=== PATIENT | male | born 1970 | race Caucasian/White ===

== ENCOUNTER → 2017-09-15 | Outpatient (CLI) | payer BC ==
[~2017-09-15] MED LIST: FLNIN NAE; FLX10 PO; GABA-113 PO; MORP15TA19 PO; OXYC-57 PO; PRT/20 PO; ZNTT/150 PO
--- NOTE | 2017-09-15 15:09 | DIAGNOSTIC IMAGING REPORT ---
FUSION CT SINUSES W/O CLINICAL HISTORY: 47 years-old Male presenting with J32.9 Chronic sinusitis, 47-YEAR-OLD MALE WITH HISTORY OF RECURRENT. TECHNIQUE: Multidetector CT of the sinuses was performed without the use of intravenous contrast. IV contrast: None. A dose lowering technique was used consistent with the principles of ALARA (as low as reasonably achievable). COMPARISON: None. CT DOSE (mGy.cm): The estimated cumulative dose is 589.14 mGy.cm. FINDINGS: Batter Scaler topogram: Unremarkable. Aerated secretions and layering fluid with mild mucosal thickening in the left maxillary sinus. Relative slight sclerosis of the left maxillary sinus valdez in comparison to the right. Minimal aerated secretions in the right maxillary sinus. Postsurgical changes of maxillary antrostomies and ethmoidectomies. Remainder of the paranasal sinuses and mastoid air cells clear. Rightward bony nasal septal deviation. Ostiomeatal unit narrowing on the left secondary to a small Luis A cell as well as mucosal thickening. Right ostiomeatal unit patent. Nasofrontal ethmoid recesses patent. No bony dehiscence of the optic canals or carotid siphons. Orbits intact. Superficial soft tissues of the face within normal limits. Limited intracranial evaluation within normal limits. Upper cervical spine normal. IMPRESSION: 1. Aerated secretions in the maxillary sinuses, left greater than right. This is consistent with acute sinusitis. Further evidence of chronic sinusitis in the left maxillary sinus. 2. Postsurgical changes of maxillary antrostomies and ethmoidectomies. Electronically signed by: David Barraza M.D. 09/15/2017 3:07 PM Dictated Date/Time: 09/15/2017 3:04 PM
== END | disposition home or self-care (01) ==
LOC: C.CTS 14:47
DX: J32.0 Chronic maxillary sinusitis (principal); Z98.890 Other specified postprocedural states

== ENCOUNTER → 2017-09-23 | Outpatient (CLI) | payer BC ==
[~2017-09-23] MED LIST changes: +RANI150T85 PO; -ZNTT/150 PO
--- NOTE | 2017-09-23 13:32 | DIAGNOSTIC IMAGING REPORT ---
CHEST 2 VIEWS ROUTINE HISTORY: 47 years-old Male Z01.818 Visit for pre-operative [id number] preoperative exam. No acute chest complaints COMPARISON: Chest radiographs 07/08/2011 TECHNIQUE: PA and lateral views of the chest FINDINGS: Cardiomediastinal and hilar silhouettes are within normal limits. There is no pneumothorax, pleural effusion, focal airspace consolidation or overt pulmonary edema. 6 mm nodular opacity of the lateral right midlung appears unchanged. Bones of the chest appear grossly intact. Surgical clips are noted within the upper abdomen. IMPRESSION: No acute process. The above report was generated using voice recognition software. It may contain grammatical, syntax or spelling errors. Electronically signed by: James Kulkarni M.D. 09/23/2017 1:31 PM Dictated Date/Time: 09/23/2017 1:30 PM
[2017-09-23 14:41] LABS: BASO % 0.3 %; BASO ABS # 0.03 K/uL (0-0.2); EOS % 1.2 %; EOS ABS # 0.12 K/uL (0-0.5); HEMATOCRIT 49.8 % (42-52); HEMOGLOBIN 17.9 g/dL (14.0-18.0); IG# 0.02 K/uL (0.00-0.02); LYMPH % 28.6 %; LYMPH ABS # 2.89 K/uL (1.2-3.4); MEAN CELL VOLUME 82.3 fL (80-100); MEAN CORPUSCULAR HEMOGLOBIN 29.6 pg (25-34); MEAN CORPUSCULAR HGB CONC 35.9 g/dl (32-36); MEAN PLATELET VOLUME 10.3 fL (7.4-10.4); MONO % 9.4 %; MONO ABS # 0.95 K/uL (0.11-0.59); NEUT % 60.3 %; NEUT ABS # 6.08 K/uL (1.4-6.5); PLATELET COUNT 232 K/uL (130-400); RED CELL DISTRIBUTION WIDTH CV 13.1 % (11.5-14.5); RED CELL DISTRIBUTION WIDTH SD 39.2 fL (36.4-46.3); WHITE BLOOD COUNT 10.09 K/uL (4.8-10.8)
[2017-09-23 14:51] LABS: PTT PATIENT 26.1 SECONDS (21.0-31.0)
[2017-09-23 14:59] LABS: POTASSIUM 4.3 mmol/L (3.5-5.1)
== END | disposition home or self-care (01) ==
LOC: C.LAB 13:00
DX: Z01.818 Encounter for other preprocedural examination (principal)

== ENCOUNTER → 2017-10-30 | Day surgery (SDC) | payer BC ==
[2017-10-12 10:55] VITALS: Ht 185.4 cm; Wt 140.9 kg
[~2017-10-30] VITALS: Ht 185.4 cm; Wt 140.9 kg
[~2017-10-30] MED LIST changes: +ATROPINE SULFATE 0.1 MG/ML 5ML SYR IV PRN; +CEFAZOLIN 3000MG IV PUSH 22.5 ML IV SCH; +CETI10TA84 PO; +DEXAMETHASONE SOD INJ 4 MG/ML VIAL ONE; +EPP3/2 IM; +EpHEDrine SULFATE INJ 50 MG/ML AMP IV PRN; +EpINEphrine INJ 1MG/ML AMP 1 MG/ML AMP ONE; +FENTANYL CITRATE INJ 50 MCG/1 ML 2 ML VIAL IV PRN; +FENTANYL CITRATE INJ 50 MCG/1 ML 2 ML VIAL ONE; -FLNIN NAE; -FLX10 PO; -GABA-113 PO; +GLYCOPYRROLATE INJ 0.2 MG/ML VIAL ONE; +HYDROCODONE/ACETAMIN 5/325MG TAB PO PRN; +LIDOCAINE 4% MPF SOAK 5 ML = 1 DOSE TOP ONE; +LIDOCAINE HCL 2% 2 ML VIAL (20MG/ML) ONE; +LIDOCAINE/EPINEPHRINE 1% 20 ML VIAL ONE; +MELO7.5T5 PO; +MIDAZOLAM HCL 1 MG/ML 2ML VIAL ONE; -MORP15TA19 PO; +MULT-506 PO; +NEOSTIGMINE METHYLSULFATE 5 MG/5 ML SYR ONE; +ONDANSETRON INJ 2 MG/ML 2 ML VIAL IV PRN; +ONDANSETRON INJ 2 MG/ML 2 ML VIAL ONE; -OXYC-57 PO; +OXYMETAZOLINE HCL 0.05% NA SPR 15 ML BTL PRN; +OXYMETAZOLINE HCL 0.05% NA SPR 15 ML BTL SCH; +PANT1TAB3 PO; +PROPOFOL IV EMULSION 10 MG/ML 20 ML VIAL IV ONE; -PRT/20 PO; +RANI150T3 PO; -RANI150T85 PO; +VALS40TA2 PO
--- NOTE | 2017-10-30 12:38 | History & Physical Bridge - SC ---
H&P Re-Evaluation Bridge Note: I have examined the patient, reviewed the History & Physical and in the interval since the performance of the History & Physical I have noted the following changes of clinical significance: No changes noted
--- NOTE | 2017-10-30 13:46 | [facility] Operative Report ---
Operative Report Operative Date Oct 30, 2017. Pre-Operative Diagnosis Chronic Sinusitis, Nasal Septal Deviation, Hypertrophy of Both Inferior Nasal Turbinates Post-Operative Diagnosis Same Procedure(s) Performed Revision Image Guided Bilateral Endoscopic Sinus Surgery, Septoplasty, And Bilateral Inferior Turbinate Reduction Surgeon Dr. Crane Strap Buckler Surgeon(s) None Estimated Blood Loss 25ML Findings 1. MILD TO MODERATE R DNS 2. ADHESION BETWEEN R SEPTUM AND LATERAL NASAL WALL 3. RESIDUAL UNCINATE PROCESSES BILATERALLY 4. PUS IN L MAX SINUS 5. POLYPOID MUCOSAL THICKENING B MAX/ETHMOID/SPHENOID SINUSES 6. SMALL L>R CONCH BULLOSAE Specimens None Anesthesia Type General I attest to the content of the Intraoperative Record and any orders documented therein. Any exceptions are noted below.
--- NOTE | 2017-10-30 13:48 | Discharge Instructions ---
Discharge Instructions Date of Service Oct 30, 2017. Admission Reason for Admission: Chronic Sinusitis, Septal Deviation, Hypertrophy Discharge Discharge Diagnosis / Problem: SAME Discharge Goals Goal(s): Therapeutic intervention Activity Recommendations Activity Limitations: as noted below 1. LIGHT ACTIVITY AND NO NOSE BLOWING FOR 2 WEEKS 2. NO DRIVING WHILE ON NORCO . Current Hospital Diet Patient's current hospital diet: Discharge Diet Recommended Diet: Regular Diet Procedures Procedures Performed: Revision Image Guided Bilateral Endoscopic Sinus Surgery, Septoplasty, And Bilateral Inferior Turbinate Reduction Pending Studies Studies pending at discharge: no Medical Emergencies . Who to Call and When: Medical Emergencies: If at any time you feel your situation is an emergency, please call 911 immediately. . Non-Emergent Contact Non-Emergency issues call your: Surgeon . . "Provider Documentation" section prepared by Mario Crane. .
[2017-10-30 14:33] VITALS: TEMP 36.8
--- NOTE | 2017-10-30 14:42 | Anesthesia Progress Nt - [facility] ---
Anesthesia Post Op Note Date & Time Oct 30, 2017 at 14:41 Vital Signs Pain Intensity: 0 Vital Signs Past 12 Hours Date Time Temp Pulse Resp B/P (MAP) Pulse Ox O2 Delivery O2 Flow Rate FiO2 10/30/17 14:29 66 13 10/30/17 14:29 67 13 95 10/30/17 14:28 66 12 108/71 95 Room Air 10/30/17 14:26 108/71 10/30/17 14:24 60 8 10/30/17 14:24 61 8 93 10/30/17 14:21 104/76 10/30/17 14:19 59 9 10/30/17 14:19 59 9 96 10/30/17 14:16 109/64 10/30/17 14:14 67 13 96 10/30/17 14:14 67 13 10/30/17 14:11 112/67 10/30/17 14:09 64 9 97 10/30/17 14:09 64 9 10/30/17 14:06 124/74 10/30/17 14:04 73 16 95 10/30/17 14:04 74 16 10/30/17 14:01 124/74 10/30/17 13:59 78 16 10/30/17 13:59 78 16 97 10/30/17 13:56 132/78 10/30/17 13:54 87 12 96 10/30/17 13:54 87 12 10/30/17 13:51 133/76 10/30/17 13:50 115/92 10/30/17 13:49 36.7 92 12 133/76 98 Humidified Oxygen 6 10/30/17 13:49 97 10/30/17 13:49 97 98 10/30/17 09:53 36.6 79 18 158/112 (127) 96 Room Air Notes Mental Status: alert / awake / arousable, participated in evaluation Pt Amnestic to Procedure: Yes Nausea / Vomiting: adequately controlled Pain: adequately controlled Airway Patency, RR, SpO2: stable & adequate BP & HR: stable & adequate Hydration State: stable & adequate Anesthetic Complications: no major complications apparent
--- NOTE | 2017-10-30 14:44 | OPERATIVE REPORT ---
DATE OF OPERATION: 10/30/2017 PREOPERATIVE DIAGNOSES: 1. Chronic rhinosinusitis. 2. Right septal deviation. 3. Left greater than right inferior turbinate hypertrophy. POSTOPERATIVE DIAGNOSES: 1. Chronic rhinosinusitis. 2. Right septal deviation. 3. Left greater than right inferior turbinate hypertrophy. 4. Right nasal synechia. PROCEDURES: Revision [employer] fusion image-guided bilateral endoscopic sinus surgery consisting of: 1. Right nasal lysis of adhesions. 2. Revision bilateral maxillary antrostomies. 3. Revision complete ethmoidectomies. 4. Revision sphenoidotomies. 5. Bilateral endoscopic ana bullosa resection. 6. Revision septoplasty. 7. Bilateral inferior turbinate outfracture and turbinoplasties. SURGEON: Dr. Crane. ANESTHESIA: General endotracheal. ESTIMATED BLOOD LOSS: 25 mL FINDINGS: 1. Synechia between the septum and lateral nasal wall on the right hand side. 2. Moderate right septal deviation. 3. Left greater than right inferior turbinate hypertrophy. 4. Purulence within the left maxillary sinus. 5. Polypoid mucosal thickening involving bilateral maxillary, ethmoid and sphenoid sinuses. 6. Residual uncinate processes bilaterally. 7. Left greater than right small ana bullosa. SPECIMENS: None. COMPLICATIONS: None. INDICATIONS FOR THE PROCEDURE: The patient is a 47-year-old male who has undergone bilateral endoscopic sinus surgery in the past by pratibha Alcantar in the [place] area in the . He states that this originally helped his symptomatology but then he developed recurrent symptomatology which has been refractory to maximal medical therapy including systemic antibiotics and steroids, although steroids give the patient significant side effects. The patient has a history of allergic rhinitis and is currently undergoing sublingual immunotherapy. He presents for the above-mentioned procedures on an outpatient elective basis. DETAILS OF PROCEDURE: After informed consent had been obtained from the patient, the patient was wheeled to the operating room and placed on the operating room table in the supine position. Monitors were placed, and after induction of general endotracheal anesthesia, the patient was prepped in the usual fashion for image-guided endoscopic sinus surgery. The [employer] fusion headset was placed over the forehead and was registered, calibrated, and verified and used for the vast majority of the sinus case. Lidocaine and epinephrine pledgets were placed in bilateral nasal cavities and pressure applied. The right-sided pledget was first removed. There was a synechia between the septum and lateral nasal wall. This was injected with 1% lidocaine with 1:100,000 epinephrine. A Caballo elevator was then used to lyse the synechia. Despite this, there was still moderate septal deviation such that the right-sided sinus surgery could not be performed before the septoplasty. Lidocaine and epinephrine pledget was then placed in the right nasal cavity and the left side was addressed. The left side pledget was removed. The residual uncinate process, middle turbinate and lateral nasal wall were injected with 1% lidocaine with 1:100,000 epinephrine. A Caballo elevator was used to medialize the left middle turbinate. A sickle knife was used to incise the middle turbinate longitudinally and the lateral half of the middle turbinate was removed using straight Surendra-Cut forceps and powered instrumentation. A Caballo elevator, straight Surendra-Cut forceps and powered instrumentation were then used to perform left uncinatectomy. The patient's previous maxillary antrostomy was enlarged anteriorly, inferiorly and posteriorly using powered instrumentation. A revision complete ethmoidectomy was then performed, removing polypoid tissue and scar tissue that was preventing a complete ethmoid cavity from being well aerated. There was purulence within the left maxillary sinus which was completely evacuated using a curved maxillary sinus suction. The left sphenoid sinus ostium was enlarged medially and inferiorly using powered instrumentation. Of note, there was polypoid mucosal thickening involving the maxillary, ethmoid and sphenoid sinuses. The nasal septum was then addressed. The nasal septum was injected with 1% lidocaine with 1:100,000 epinephrine. Lidocaine and epinephrine pledgets were then placed in bilateral nasal cavities and pressure applied. The pledgets were then removed. A #15 scalpel was used to make a left hemitransfixion incision through which the left-sided mucoperichondrial and mucoperiosteal flap was elevated. A #15 scalpel was then used to incise the quadrangular cartilage, care to preserve a 1.5 cm dorsal and caudal strut, and the right-sided mucoperichondrial and mucoperiosteal flap was elevated. There was previous scar tissue from a likely previous septoplasty that had to be divided carefully using a combination of the Putnam elevator as well as a #15 scalpel. The deviated portion of the quadrangular cartilage was removed using a Leobardo swivel knife. A V-shaped osteotome, mallet and Millicent forceps were then used to remove a bony septal spur which was impinging on the airway posteriorly on the right hand side. This resulted in a midline septum. The septal cavity was suctioned. The left hemitransfixion incision was closed with several simple interrupted 4-0 chromic sutures. A 4-0 plain gut suture on a Adrian needle was then used to perform a quilting stitch of the mucoperichondrial and mucoperiosteal flaps bilaterally to help prevent septal hematoma. A Moreno elevator was then used to infracture and subsequently outfracture the inferior turbinates bilaterally. The inferior turbinates were injected with 1% lidocaine with 1:100,000 epinephrine. A 2.0 mm turbinate blade using powered instrumentation was then used to perform bilateral inferior turbinoplasties in the submucosal fashion. The right-sided sinus surgery was then performed. This was done in the similar fashion as described on the left hand side, although there was no purulence within the maxillary sinus. The sinonasal cavities were then suctioned. MeroGel was then placed into bilateral ethmoid sinuses/middle meati. Merogel was also placed at the right nasal lysis of adhesion site to hopefully help prevent adhesion re-formation. An orogastric tube was placed and the stomach was suctioned free of air and stomach contents. This marked the end of the case. The patient tolerated the procedure well and there were no apparent complications. The patient was extubated and transferred to recovery room in stable condition. I attest to the content of the Intraoperative Record and any orders documented therein. Any exception s are noted below.
[2017-10-30 15:01] VITALS: BP 127/86; PULSE 70; O2SAT 94
== END | disposition home or self-care (01) ==
LOC: X.SURG 09:38
DX: J34.2 Deviated nasal septum (principal); J30.9 Allergic rhinitis, unspecified; J34.3 Hypertrophy of nasal turbinates; E66.9 Obesity, unspecified; I10 Essential (primary) hypertension; F17.290 Nicotine dependence, other tobacco product, uncomplicated; Z82.49 Family history of ischemic heart disease and other diseases of the circulatory system; Z82.3 Family history of stroke; Z83.3 Family history of diabetes mellitus; Z80.8 Family history of malignant neoplasm of other organs or systems; Z79.899 Other long term (current) drug therapy

== ENCOUNTER → 2018-03-02 | Outpatient (CLI) | payer BC ==
[~2018-03-02] VITALS: Ht 185.4 cm; Wt 140.7 kg
[~2018-03-02] MED LIST changes: -ATROPINE SULFATE 0.1 MG/ML 5ML SYR IV PRN; -CEFAZOLIN 3000MG IV PUSH 22.5 ML IV SCH; -DEXAMETHASONE SOD INJ 4 MG/ML VIAL ONE; -EpHEDrine SULFATE INJ 50 MG/ML AMP IV PRN; -EpINEphrine INJ 1MG/ML AMP 1 MG/ML AMP ONE; -FENTANYL CITRATE INJ 50 MCG/1 ML 2 ML VIAL IV PRN; -FENTANYL CITRATE INJ 50 MCG/1 ML 2 ML VIAL ONE; -GLYCOPYRROLATE INJ 0.2 MG/ML VIAL ONE; -HYDROCODONE/ACETAMIN 5/325MG TAB PO PRN; -LIDOCAINE 4% MPF SOAK 5 ML = 1 DOSE TOP ONE; -LIDOCAINE HCL 2% 2 ML VIAL (20MG/ML) ONE; -LIDOCAINE/EPINEPHRINE 1% 20 ML VIAL ONE; -MELO7.5T5 PO; -MIDAZOLAM HCL 1 MG/ML 2ML VIAL ONE; -NEOSTIGMINE METHYLSULFATE 5 MG/5 ML SYR ONE; -ONDANSETRON INJ 2 MG/ML 2 ML VIAL IV PRN; -ONDANSETRON INJ 2 MG/ML 2 ML VIAL ONE; -OXYMETAZOLINE HCL 0.05% NA SPR 15 ML BTL PRN; -OXYMETAZOLINE HCL 0.05% NA SPR 15 ML BTL SCH; -PROPOFOL IV EMULSION 10 MG/ML 20 ML VIAL IV ONE
[2018-03-02 14:11] VITALS: BP 140/89; PULSE 71; Ht 185.4 cm; Wt 140.7 kg
== END | disposition home or self-care (01) ==
LOC: C.NEUR 13:22
PROVIDERS: ATTEND Internal Medicine Pulmonary Disease
DX: G47.30 Sleep apnea, unspecified (principal); R53.83 Other fatigue; G47.19 Other hypersomnia; E66.9 Obesity, unspecified; Z88.8 Allergy status to other drugs, medicaments and biological substances; Z88.6 Allergy status to analgesic agent; Z91.048 Other nonmedicinal substance allergy status; Z91.013 Allergy to seafood

== ENCOUNTER 2019-10-13 14:19 | Observation (INO) ==
--- NOTE | 2019-10-12 08:46 | Anesthesiology Consultation ---
Date of Service October 12, 2019 Assessment & Plan (1) Encounter for pre-operative examination: Chart Review Chart Review: Acceptable Risk for Surgery (pending preop testing) and Patient NOT seen in Pre Admission Testing History Surgery Operation Date: 10/13/19 07:00 Proposed Procedures p Right Ankle Open Reduction Internal Fixation Maisonneuve Fracture, Posterior Malleolar Fracture, Syndesmosis Stabilization - David Damico MD Height/Weight Height: 6 ft 1 in Weight: 133.4 kg Allergies Allergy/AdvReac Type Severity Reaction Status Date / Time grass pollen Allergy Unknown Unknown Verified 10/12/19 08:46 house dust mite Allergy Unknown Unknown Verified 10/12/19 08:46 ragweed pollen Allergy Unknown Unknown Verified 10/12/19 08:46 shellfish derived Allergy Unknown ANAPHYLAXIS Verified 10/12/19 08:46 tree and shrub pollen Allergy Unknown Unknown Verified 10/12/19 08:46 weed pollen Allergy Unknown Unknown Verified 10/12/19 08:46 prednisone AdvReac Mild "NAUSEA Verified 10/12/19 08:46 AND VOMITING" morphine AdvReac Unknown "MAKES ME Verified 10/12/19 08:46 STRANGE" Medications Home Medications Medication Instructions Recorded Confirmed Last Taken epinephrine 0.3 mg/0.3 mL 0.3 mg IM ONCE PRN #1 ea 03/21/19 10/12/19 Unknown injection, auto-injector multivitamin 1 tab PO DAILY 03/21/19 10/12/19 Unknown pantoprazole 40 mg tablet,delayed 40 mg PO DAILY #90 tab 05/09/19 10/12/19 Unknown release valsartan 40 mg tablet 40 mg PO DAILY #90 tab 05/24/19 10/12/19 Unknown meloxicam [Mobic] 7.5 mg PO BID 10/12/19 10/12/19 Unknown Past Medical History Medical History Acid reflux Allergic rhinitis Carpal tunnel syndrome Chronic sinusitis Circadian rhythm sleep disorder, shift work type Fatigue Hx of gastritis Hypertension Obesity ABDI (obstructive sleep apnea) non-compliant - unable to tolerate CPAP Past Family History Family History Mother Diabetes Cardiac disorder Allergies Hypertension Stroke Father Bone cancer Allergies Myocardial infarction Cancer Other No family history of adverse response to anesthesia Denies family history of Ovarian cancer Prostate cancer Breast cancer Colorectal cancer Past Surgical History Surgical History History of appendectomy History of cholecystectomy Lap History of esophagogastroduodenoscopy (EGD) History of hand surgery right hand History of nasal septoplasty History of nasal surgery History of sinus surgery history of turbinectomy History of tonsillectomy S/P lumbar spinal fusion L1-L4 Social History Smoking Status: Current some day smoker tobacco type: cigars
--- NOTE | 2019-10-12 14:17 | History & Physical Report ---
Date of Service October 12, 2019 Assessment & Plan (1) Closed right ankle fracture: DIAGNOSIS: Right ankle maisonneuve fracture; posterior malleolar fracture; syndesmosis disruption. PROCEDURE: Open reduction and internal fixation of right ankle maisonneuve fracture, posterior malleolar fracture, and syndesmosis stabilization. PLAN: The patient is scheduled to undergo this procedure as an inpatient at the [facility] on October. Risks and complications of the procedure such as infection, bleeding, pain, scar, nerve and blood vessel damage, weakness, wound problems, stiffness, incomplete relief of symptoms, hardware failure, malunion, nonunion, arthritis, blood clots, embolism, heart attack, stroke, and were explained to the patient by Dr. Damico today. Informed consent form of the procedure was obtained. We obtained an EKG during the patient's preoperative visit today that showed normal sinus rhythm. The patient went to the [facility] upstairs after his appointment and received CBC, basic metabolic panel, PT, INR, and results are pending. There is no clinical indication for any preoperative medical clearance. The patient will be admitted as an inpatient for pain control. We will discharge him on Xarelto 10 mg tablets for 21 days postoperatively for DVT prophylaxis as well as oxycodone for postoperative pain control. The patient will be scheduled for his postoperative followup visit with myself on October 25 at 10:15. During today's visit, I did place the patient into a new posterior U splint that he is to keep in place until his surgery. He will use crutches as an ambulatory aid. After his 2-week followup, we may discuss the possibility of using an e-scooter for transportation purposes. The patient verbalized understanding of all information provided during today's visit, thanks for the care he has received, and states if he has questions or concerns prior to his surgery date this coming , he will contact the clinic. History of Present Illness Chief Complaint: CHIEF COMPLAINT: Right ankle pain. Primary Care Provider: Christine Lane DO HPI: This is a 49-year-old male, who presents to the clinic today for an evaluation of a right ankle fracture that he sustained after tripping on his stairs and missing the landing this morning. The patient states that he felt a crack and was unable to bear weight after the injury occurred. He was seen at the [facility] Emergency Department, placed into a U splint, and advised to follow up in our clinic. The patient was diagnosed with maisonneuve fracture of his right ankle involving the posterior malleolus and syndesmosis disruption. He elects to proceed with surgical intervention to correct this injury. PAST MEDICAL HISTORY: Hypertension, gastroesophageal reflux. PAST SURGICAL HISTORY: Lumbar fusion of L1 through L4, appendectomy, cholecystectomy, sinus surgery, tonsillectomy/adenoidectomy, and right 5th finger open reduction and internal fixation with extensor tendon repair. FAMILY HISTORY: Noncontributory. ALLERGIES: THE PATIENT HAS MEDICATION ALLERGY TO PREDNISONE. CURRENT MEDICATIONS USED: Meloxicam unknown dosage daily, multivitamin unknown dosage daily, pantoprazole unknown dosage daily, valsartan unknown dosage daily. SOCIAL HISTORY: The patient states that he smokes 3 cigars per week and consumes approximately 6 beers per week. Allergies Allergy/AdvReac Type Severity Reaction Status Date / Time grass pollen Allergy Unknown Unknown Verified 10/12/19 08:46 house dust mite Allergy Unknown Unknown Verified 10/12/19 08:46 ragweed pollen Allergy Unknown Unknown Verified 10/12/19 08:46 shellfish derived Allergy Unknown ANAPHYLAXIS Verified 10/12/19 08:46 tree and shrub pollen Allergy Unknown Unknown Verified 10/12/19 08:46 weed pollen Allergy Unknown Unknown Verified 10/12/19 08:46 prednisone AdvReac Mild "NAUSEA Verified 10/12/19 08:46 AND VOMITING" morphine AdvReac Unknown "MAKES ME Verified 10/12/19 08:46 STRANGE" Home Medications Home Medications Medication Instructions Recorded Confirmed Type epinephrine 0.3 mg/0.3 mL 0.3 mg IM ONCE PRN #1 ea 03/21/19 10/12/19 History injection, auto-injector multivitamin 1 tab PO DAILY 03/21/19 10/12/19 History pantoprazole 40 mg tablet,delayed 40 mg PO DAILY #90 tab 05/09/19 10/12/19 Rx release valsartan 40 mg tablet 40 mg PO DAILY #90 tab 05/24/19 10/12/19 Rx meloxicam [Mobic] 7.5 mg PO BID 10/12/19 10/12/19 History Past Med/Surg History Medical History Acid reflux Allergic rhinitis Carpal tunnel syndrome Chronic sinusitis Circadian rhythm sleep disorder, shift work type Fatigue Hx of gastritis Hypertension Obesity ABDI (obstructive sleep apnea) non-compliant - unable to tolerate CPAP Surgical History History of appendectomy History of cholecystectomy Lap History of esophagogastroduodenoscopy (EGD) History of hand surgery right hand History of nasal septoplasty History of nasal surgery History of sinus surgery history of turbinectomy History of tonsillectomy S/P lumbar spinal fusion L1-L4 Family History Mother Diabetes Cardiac disorder Allergies Hypertension Stroke Father Bone cancer Allergies Myocardial infarction Cancer Other No family history of adverse response to anesthesia Denies family history of Ovarian cancer Prostate cancer Breast cancer Colorectal cancer Social History Preferred Language: Armenian Communication Ability: Effective Log Tumbler Required: No Beliefs That Will Affect Care: None Current Living Situation: Spouse and Family Current Living Situation Comment: , granddaughter, and [id number] Other Information That Helps Us Care for You: No Feels Safe at Home: Yes Safety Concerns: Feels Safe At This Time Smoking Status: Current some day smoker Tobacco Type: cigars ; Cigarettes Per Day: 3 cigars a week ; Do You Dip or Chew Tobacco: No ; Second Hand Exposure: Yes (occasional) ; Tobacco Cessation Education Requested by Patient: No Hx Alcohol Use: Yes Alcohol type: beer Hx Substance Use: No Review of Systems All systems reviewed & are unremarkable except as noted in HPI & below Physical Exam Physical Exam: PHYSICAL EXAMINATION: Skin: The patient's skin is normal in appearance. No skin lesions or discharge. Eyes: Pupils are equal and reactive to light and accommodating. Extraocular movements are intact. Throat: Posterior oropharynx clear with absence of edema, erythema, or exudate. Cardiovascular: The patient has a regular rate and rhythm with no murmurs or gallops appreciated. Lungs: Auscultation of lung blas reveals clear breath sounds throughout. No wheezing, rales, or rhonchi. Abdomen: Morbidly obese, nondistended, nontender with normoactive bowel sounds. Extremities: Right ankle, the patient has exquisite tenderness to palpation over the distal fibula with noticeable edema and ecchymosis. Range of motion is very limited. Very light passive plantar and dorsiflexion causes severe pain referred to the medial and lateral malleoli. I did not attempt passive internal and external rotation, inversion and eversion. The patient is able to depict light sensation to touch over all the digits and pad of his foot and dorsum of his foot. His calf is soft, supple, nontender to palpation. His peripheral pulses are easily palpable. His capillary refill is less than 2 seconds. He is neurovascularly intact. Neurological: Cranial nerves II through XII are intact. No motor or sensory deficits. Psychological/General: The patient is alert and oriented x3 with proper grooming and hygiene.
[~2019-10-13 14:19] MED LIST changes: +CEFAZOLIN 3000MG 72.5 ML IV SCH; -CETI10TA84 PO; -EPP3/2 IM; +LR 15ML/HR IV SCH; -MULT-506 PO; -PANT1TAB3 PO; -RANI150T3 PO; -VALS40TA2 PO
--- NOTE | 2019-10-13 18:07 | History & Physical Bridge Note ---
Date of Service October 13, 2019 History & Physical Bridge Note I have examined the patient, reviewed the History & Physical and in the interval since the performance of the History & Physical I have noted the following changes of clinical significance: no changes noted
[2019-10-13] MEDS ORDERED: ONDANSETRON INJ 2 MG/ML 2 ML VIAL IV PRN ×2 (19:27→22:04)
[2019-10-13] MEDS ORDERED: fentaNYL citrate 100 MCG/2 ML VIAL IV PRN (19:27)
[2019-10-13] MEDS ORDERED: ATROPINE SULFATE 0.1 MG/ML 10ML SYR IV PRN (19:27)
[2019-10-13] MEDS ORDERED: ePHEDrine sulfate 50 MG/ML AMP IV PRN (19:27)
[2019-10-13] MEDS ORDERED: fentaNYL citrate 100 MCG/2 ML VIAL ONE ×2 (19:55→21:07)
[2019-10-13] MEDS ORDERED: MIDAZOLAM HCL 1 MG/ML 2ML VIAL ONE (19:55)
[2019-10-13] MEDS ORDERED: PROPOFOL IV EMULSION 10 MG/ML 20 ML VIAL IV ONE (19:56)
[2019-10-13] MEDS ORDERED: ROPIVACAINE 0.5% 5 MG/ML 30 ML VIAL ONE (19:58)
[2019-10-13] MEDS ORDERED: BUPIVACAINE/EPINEPHRINE 0.5% MPF 1:200,000 10 ML VIAL ONE (20:05)
[2019-10-13] MEDS ORDERED: ONDANSETRON INJ 2 MG/ML 2 ML VIAL ONE (20:49)
--- NOTE | 2019-10-13 21:45 | Post Operative Brief Note ---
Immediate Post Op Note v1 Date of Surgery October 13, 2019 Pre & Post Diagnosis Operation Date: 10/13/19 07:00 Pre-Op Diagnosis: Right Ankle Maissonneuve & Posterior Malleolar Fracture; Syndesmosis Disruption Post-Op Diagnosis: Right Ankle Maissonneuve & Posterior Malleolar Fracture; Syndesmosis Disruption I identified the patient and participated in the time-out.: Yes Procedure Operation Date: 10/13/19 07:00 Actual Procedures p Right Ankle Open Reduction Internal Fixation Maisonneuve Fracture, Posterior Malleolar Fracture, Syndesmosis Stabilization(Right) - David Damico MD Surgeon David Damico MD Yeast Pumper LYNNETTE Parekh PA-C Estimated Blood Loss 10 Findings Consistent with Post-Op Diagnosis Anesthesia Type General Regional Complications none Disposition Accompanied Patient To Recovery: No Disposition: Recovery Room
[2019-10-13] MEDS ORDERED: NALOXONE HCL 0.4 MG/1 ML VIAL/CARP IV PRN (21:59)
--- NOTE | 2019-10-13 21:59 | Operative Report ---
Post Operative Report Pre & Post Diagnosis Operation Date: 10/13/19 07:00 Pre-Op Diagnosis: Right Ankle Maissonneuve & Posterior Malleolar Fracture; Syndesmosis Disruption Post-Op Diagnosis: Right Ankle Maissonneuve & Posterior Malleolar Fracture; Syndesmosis Disruption I identified the patient and participated in the time-out.: Yes Procedure Operation Date: 10/13/19 07:00 Actual Procedures p Right Ankle Open Reduction Internal Fixation Maisonneuve Fracture, Posterior Malleolar Fracture, Syndesmosis Stabilization(Right) - David Damico MD Surgeon David Daimco MD Merchandise Executive LYNNETTE Parekh PA-C Estimated Blood Loss 10 Findings Consistent with Post-Op Diagnosis Specimens none Complications none Disposition Accompanied Patient To Recovery: Yes Disposition: PCU Description of Procedure I was present during the entire case assisting with wound closure, dressing and splint application. Please see Dr. Damico procedure note for specifics of the case. I attest to the content of the Intraoperative Record and any orders documented therein. Any exceptions are noted below.
--- NOTE | 2019-10-13 21:59 | Fluoroscopy Report ---
FL ankle RT min 3V RTN HISTORY: 49 years-old Male RT ANKLE ORIF ORIF of the right ankle COMPARISON: Right tibia and fibula radiographs 10/11/2019 TECHNIQUE: 10 spot fluoroscopic images of the right ankle were obtained utilizing 66.4 seconds fluoro scopy time. FINDINGS: Acute oblique fracture of the mid right fibular diaphysis. Posterior malleolar fracture is also noted along with degenerative changes of the ankle mortise. Corticated bone fragments adjacent to the medi al malleolus. Status post placement of a transversely oriented distal syndesmotic screw with anterior to posterior cannulated screw fixating the acute posterior malleolar fracture. Satisfactory alignmen t. Expected postprocedural soft tissue swelling. IMPRESSION: Fluoroscopic assistance as above. Please see operative report for further details. ACT 112: Negative or not required by law. The above report was generated using voice recognition software. It may contain grammatical, syntax o r spelling errors. Results electronically sent 10/13/2019 9:57 PM to: David Damico MD Electronically signed by: James Kulkarni M.D. 10/13/2019 9:57 PM
[2019-10-13] MEDS ORDERED: ACETAMINOPHEN 325 MG TAB PO PRN (22:04)
[2019-10-13] MEDS ORDERED: EPINEPHRINE ADULT AUTO-INJECT 0.3 MG SYR IM PRN (22:04)
[2019-10-13] MEDS ORDERED: ALUMINUM/MAGNESIUM SUSP 30 ML UDC PO PRN (22:04)
[2019-10-13] MEDS ORDERED: DiphenhydrAMINE HCL 50 MG/ML VIAL IV PRN (22:04)
[2019-10-13] MEDS ORDERED: METOCLOPRAMIDE HCL INJ 5 MG/ML 2 ML VIAL IV PRN (22:04)
--- NOTE | 2019-10-13 22:13 | Anesthesiology Progress Note ---
Date of Service October 13, 2019 Anesthesia Post Procedure Vital Signs Vital Signs: Temp Pulse Resp BP Pulse Ox 10/13/19 20:08 77 16 137/89 98 10/13/19 14:46 37.5 C 81 18 162/99 H 96 Pain Intensity Right Ankle: Pain Intensity: 4 Transfer of Care Handoff Completed per policy Notes Mental Status: alert / awake / arousable and participated in evaluation Patient Amnestic to Procedure: Yes Nausea / Vomiting: adequately controlled Pain: adequately controlled Airway Patency, RR, SpO2: stable & adequate BP & HR: stable & adequate Hydration State: stable & adequate Anesthetic Complications: no major complications apparent and Pt Satisfied with anesthetic care
--- NOTE | 2019-10-13 22:39 | XRay Report ---
XR ankle RT 2V HISTORY: 49 years-old Male post op ankle fracture acute right ankle fracture COMPARISON: Fluoroscopic images of the right ankle of same day TECHNIQUE: 2 views of the right ankle FINDINGS: Acute oblique fracture of the mid right fibular diaphysis with unchanged alignment. Posterior malleol ar fracture is also noted along with degenerative changes of the ankle mortise. Corticated bone fragm ents adjacent to the medial malleolus. Status post placement of a transversely oriented distal syndes motic screw with anterior to posterior cannulated screw fixating the acute posterior malleolar fractu re. Satisfactory alignment. Expected postprocedural soft tissue swelling. Overlying skin donita and cast are noted. IMPRESSION: ORIF changes as above with satisfactory alignment. ACT 112: Negative or not required by law. The above report was generated using voice recognition software. It may contain grammatical, syntax o r spelling errors. Results electronically sent 10/13/2019 10:37 PM to: Obey Parekh PA-C Electronically signed by: James Kulkarni M.D. 10/13/2019 10:37 PM
--- NOTE | 2019-10-14 02:51 | Operative Report (OR) ---
DATE OF OPERATION: 10/13/2019 PREOPERATIVE DIAGNOSES: Right ankle Maisonneuve fracture and posterior malleolus fractures as well as syndesmosis disruption. POSTOPERATIVE DIAGNOSES: Right ankle Maisonneuve fracture and posterior malleolus fractures as well as syndesmosis disruption. OPERATIONS PERFORMED: 1. Open reduction internal fixation, right ankle Maisonneuve fracture and posterior malleolar fractures. 2. Syndesmosis stabilization. SURGEON: David Damico MD OIL FIELD TESTER: Tim Parekh PA-C ESTIMATED BLOOD LOSS: 10 mL. SPECIMENS: None. COMPLICATIONS: None. IMPLANTS: 1. Synthes 58 mm 4.5 cortical screw. 2. One Synthes 4.0 cannulated screw measuring 44 mm in length. INDICATIONS: The patient is a 49-year-old male who fell walking down the stairs in the dark 2 days ago. He presented to my clinic after having been splinted by the Emergency Room. He was unable to weightbear after the injury. X-rays in the Emergency Room demonstrated a posterior malleolar fracture. I obtained tib-fib films which showed a fibular fracture consistent with a Maisonneuve type of injury with disruption of the syndesmosis. The patient was neurovascularly intact. I had a long discussion about the nature of the patient's injury which is an unstable ankle fracture. I recommended surgical intervention. After reviewing the risks and benefits of the surgery, the patient elected to proceed. All questions were answered. Informed consent was signed. DESCRIPTION OF THE OPERATION: The patient was identified in the preoperative holding area where his surgical site was marked. He was given a popliteal block by anesthesia and brought back to main operating room, where he was placed on the operating room table and general anesthesia was administered. A bump was placed underneath the ipsilateral hip. All bony prominences were padded. Perioperative antibiotics were administered. He was prepped and draped in the normal sterile fashion. Prior to incision, a multidisciplinary timeout was called. All in the room were in agreement. We began by bringing in the C-arm. The fibular fracture was visualized and it was nondisplaced compared with his prior films. We then visualized the ankle and performed an external rotation stress test. This demonstrated medial clear space widening and syndesmosis widening consistent with a Maisonneuve fracture pattern and syndesmosis disruption. We then marked out our incision over the posterior aspect of the fibula approximately 3 cm above the tibiotalar joint. The incision was made for a distance of approximately 2 cm. I then dissected down through subcutaneous tissues on to the periosteum of the fibula. We did not encounter the superficial peroneal nerve in the dissection. I then opened up the large periarticular reduction forceps and placed one of the tines directly down on to the fibula. The medial cristina was localized under fluoroscopy, so it would be perpendicular to this and then a small stab incision was made along the anterior medial aspect of the tibia. The 2 tines were then placed down on to the tibia and fibula respectively perpendicular to the syndesmosis. The clamp was then tightened. We then repeated his external rotation stress test and there was no opening. The direction of the clamp was again checked in the lateral fluoroscopic view which we were very happy with. Fibula fracture was nondisplaced with this maneuver. I then used a 3.2 drill to drill just distal to the tines and perpendicular with the tibiotalar joint and in line with the axis of the periarticular reduction forceps. This measured at 58 mm and a 4.5 mm cortical screw was then placed. The periarticular clamp was then removed and the external rotation stress was repeated and remained normal with no medial clear space or syndesmosis gap widening. Next, the incision for a front to back screw to stabilize the posterior malleolar fracture was identified with fluoroscopy. A small 1.5 cm incision was then made anteriorly. I then slid a sharp pointed tenaculum behind the fibula and in front of the peroneals and down on to the posterior malleolar fragment of the tibia. The other cristina was placed on the anterior aspect of the distal tibia. This was used to reduce and stabilize posterior malleolar fragment. The reduction was not perfect, but it was acceptable given the small nature of this fragment. I then placed a guidewire under fluoroscopic guidance from front to back, taking great care to avoid the tibiotalar joint. This was then measured. We initially placed a 40 mm screw based off of our measurement, but it did not have adequate length to bite the far cortex. I therefore switched it out for a 44 mm 4.0 cannulated screw. This was placed without difficulty. It was the appropriate length and gave us excellent fixation of the posterior malleolar fragment. At this point, the final fluoroscopic images were obtained. I was very happy with hardware position and stabilization of the ankle. The wounds were irrigated with copious amounts of normal saline. A 5 mL of 0.5% Marcaine was injected into the medial stab wound since he did not have a saphenous nerve block. The laterally based wound was closed with interrupted buried deep dermal sutures with 2-0 Vicryl. Zack were used for the skin on all 3 incisions. Sterile dressings were applied followed by posterior and U-slab splint. The patient was then awoken from anesthesia and transferred to recovery room in stable condition. POSTOPERATIVE COURSE: The patient will be admitted overnight for pain control and monitoring. He will elevate his foot. He will be on Xarelto for DVT prophylaxis for 3 weeks. We will plan on a total of 6 weeks of nonweightbearing. At that point, he can begin weightbearing. We will need to remove the 4.5 mm cortical screw approximately 12 weeks after surgery which can be done as an outpatient surgery under local anesthesia. I attest to the content of the Intraoperative Record and any orders documented therein. Any exception s are noted below.
[2019-10-14 07:21] LABS: Basophils # (auto) 0.01 K/uL (0-0.2); Basophils % (auto) 0.1 %; Hematocrit (blood only) 48.4 % (42-52); Hemoglobin 17.1 g/dL (14.0-18.0); Immature Granulocytes # (auto) 0.03 K/uL (0.00-0.02); Immature Granulocytes % (auto) 0.3 %; Lymphocytes # (auto) 1.59 K/uL (1.2-3.4); Lymphocytes % (auto) 14.7 %; Mean Corpuscular Hemoglobin 29.9 pg (25-34); Mean Corpuscular Hgb Conc 35.3 g/dL (32-36); Mean Corpuscular Volume 84.8 fL (80-100); Mean Platelet Volume 10.3 fL (7.4-10.4); Monocytes # (auto) 0.61 K/uL (0.11-0.59); Monocytes % (auto) 5.6 %; Neutrophils # (auto) 8.57 K/uL (1.4-6.5); Neutrophils % (auto) 79.3 %; Platelet Count 254 K/uL (130-400); RDW Coefficient of Variation 13.4 % (11.5-14.5); RDW Standard Deviation 41.2 fL (36.4-46.3); Red Blood Count 5.71 M/uL (4.7-6.1); White Blood Count 10.81 K/uL (4.8-10.8)
[2019-10-14 07:57] LABS: BUN Creatinine Ratio 14.4 (10-20); Calcium 8.9 mg/dl (8.5-10.1); Est GFR (African American) 113.6; Potassium 3.9 mmol/L (3.5-5.1)
--- NOTE | 2019-10-14 08:19 | Anesthesiology Progress Note ---
Date of Service October 14, 2019 Anesthesia Post Procedure Vital Signs Vital Signs: Temp Pulse Pulse Resp BP Pulse Ox 10/14/19 07:18 36.6 C 87 18 135/78 95 10/14/19 06:15 36.9 C 68 16 144/79 H 95 10/14/19 02:06 93 10/14/19 02:05 37.0 C 78 16 142/76 H 96 10/14/19 01:05 36.7 C 88 16 133/84 97 10/14/19 00:01 37.0 C 91 H 17 159/88 H 95 10/13/19 23:35 36.5 C 86 15 167/94 H 95 10/13/19 23:11 36.5 C 86 16 144/93 H 96 10/13/19 22:50 36.5 C 80 16 166/91 H 95 10/13/19 22:40 84 16 162/90 H 94 10/13/19 22:30 84 16 170/95 H 95 10/13/19 22:20 82 18 156/95 H 96 10/13/19 22:10 83 14 163/88 H 97 10/13/19 22:03 36.5 C 85 14 161/97 H 97 10/13/19 20:08 77 16 137/89 98 10/13/19 14:46 37.5 C 81 18 162/99 H 96 Pain Intensity Right Ankle: Pain Intensity: 4 Notes Mental Status: alert / awake / arousable and participated in evaluation Patient Amnestic to Procedure: Yes Nausea / Vomiting: adequately controlled Pain: adequately controlled Airway Patency, RR, SpO2: stable & adequate BP & HR: stable & adequate Hydration State: stable & adequate Anesthetic Complications: no major complications apparent and Pt Satisfied with anesthetic care
[2019-10-14] MEDS ORDERED: PANTOprazole 40 MG TAB PO SCH ×2 (09:00)
[2019-10-14] MEDS ORDERED: MELOXICAM 7.5 MG TAB PO SCH (09:00)
[2019-10-14] MEDS ORDERED: VALSARTAN 80 MG TAB PO SCH (09:00)
[2019-10-14] MEDS ORDERED: RIVAROXABAN 10 MG TABLET PO SCH (09:00)
[2019-10-14] MEDS ORDERED: MULTIVITAMIN TAB PO SCH (09:00)
--- NOTE | 2019-10-14 16:39 | Orthopedic Progress Note ---
Date of Service October 14, 2019 Assessment & Plan (1) Closed right ankle fracture: PT/OT Eval Non weight bearing on Right LE with crutch aide DVT prophy with Xarelto and TEDs Pain control with PO meds Ice with EZ wrap Elevated Plan on discharge home today with home health services Follow up at [facility] as scheduled Keep splint in place With questions call Admission and Anticipated Discharge Date Admission Date: October 13, 2019 Subjective This 49 yo is day 1 s/p of Open reduction internal fixation, right ankle Maisonneuve fracture and posterior malleolar fractures with Syndesmosis stabilization. Patient states that his block is still effective and that he has a numb tingly sensation in his toes. He denies pain in Rt LE, CP, SOB, fever, chills, sweats, nausea, vomiting or lethargy. His plan is to be discharged today with home health services. Review of Systems Review of Systems: All systems reviewed & are unremarkable except as noted in Subjective Physical Exam Physical Exam: Right lower leg: Splint in place, clean, dry and intact. Toes mobile with tingly sensation with light touch. Cap refill < 2 seconds. Easily able to perform SLRT with knee ROM from 0-120. Quad strength 4/5. NV intact. Results & Data ([facility]) Vital Signs (Past 12 Hours) Vital Signs Temp Pulse Resp BP Pulse Ox 10/14/19 12:39 36.7 C 71 18 121/72 96 10/14/19 11:47 36.7 C 71 18 121/72 96 10/14/19 07:18 36.6 C 87 18 135/78 95 10/14/19 06:15 36.9 C 68 16 144/79 H 95 Laboratory Results 10/14/19 10/14/19 Range/Units 06:47 06:47 WBC 10.81 H (4.8-10.8) K/uL RBC 5.71 (4.7-6.1) M/uL Hgb 17.1 (14.0-18.0) g/dL Hct 48.4 (42-52) % MCV 84.8 (80-100) fL MCH 29.9 (25-34) pg MCHC 35.3 (32-36) g/dL RDW Std Deviation 41.2 (36.4-46.3) fL RDW Coeff of John 13.4 (11.5-14.5) % Plt Count 254 (130-400) K/uL MPV 10.3 (7.4-10.4) fL Immature Gran % (Auto) 0.3 % Neut % (Auto) 79.3 % Lymph % (Auto) 14.7 % Wharton % (Auto) 5.6 % Eos % (Auto) 0.0 % Baso % (Auto) 0.1 % Immature Gran # (Auto) 0.03 H (0.00-0.02) K/uL Neut # (Auto) 8.57 H (1.4-6.5) K/uL Lymph # (Auto) 1.59 (1.2-3.4) K/uL Wharton # (Auto) 0.61 H (0.11-0.59) K/uL Eos # (Auto) 0.00 (0-0.5) K/uL Baso # (Auto) 0.01 (0-0.2) K/uL Sodium 137 (136-145) mmol/L Potassium 3.9 (3.5-5.1) mmol/L Chloride 105 (98-107) mmol/L Carbon Dioxide 28 (21-32) mmol/L Anion Gap 4.0 (3-11) BUN 13 (7-18) mg/dl Creatinine 0.92 (0.6-1.4) mg/dl Est Cr Clr Drug Dosing 142.0 ml/min Est GFR ( Amer) 113.6 Est GFR (Non-Af Amer) 98.0 BUN/Creatinine Ratio 14.4 (10-20) Glucose 128 H (70-99) mg/dl Calcium 8.9 (8.5-10.1) mg/dl
--- NOTE | 2019-10-17 08:40 | Discharge Summary ---
Date of Service October 17, 2019 Admission HPI Per Admitting Provider HPI: This is a 49-year-old male, who presents to the clinic today for an evaluation of a right ankle fracture that he sustained after tripping on his stairs and missing the landing this morning. The patient states that he felt a crack and was unable to bear weight after the injury occurred. He was seen at the [facility], placed into a U splint, and advised to follow up in our clinic. The patient was diagnosed with maisonneuve fracture of his right ankle involving the posterior malleolus and syndesmosis disruption. He elects to proceed with surgical intervention to correct this injury. PAST MEDICAL HISTORY: Hypertension, gastroesophageal reflux. PAST SURGICAL HISTORY: Lumbar fusion of L1 through L4, appendectomy, cholecystectomy, sinus surgery, tonsillectomy/adenoidectomy, and right 5th finger open reduction and internal fixation with extensor tendon repair. FAMILY HISTORY: Noncontributory. ALLERGIES: THE PATIENT HAS MEDICATION ALLERGY TO PREDNISONE. CURRENT MEDICATIONS USED: Meloxicam unknown dosage daily, multivitamin unknown dosage daily, pantoprazole unknown dosage daily, valsartan unknown dosage daily. SOCIAL HISTORY: The patient states that he smokes 3 cigars per week and consumes approximately 6 beers per week. Admission Exam Per Admitting Provider PHYSICAL EXAMINATION: Skin: The patient's skin is normal in appearance. No skin lesions or discharge. Eyes: Pupils are equal and reactive to light and accommodating. Extraocular movements are intact. Throat: Posterior oropharynx clear with absence of edema, erythema, or exudate. Cardiovascular: The patient has a regular rate and rhythm with no murmurs or gallops appreciated. Lungs: Auscultation of lung blas reveals clear breath sounds throughout. No wheezing, rales, or rhonchi. Abdomen: Morbidly obese, nondistended, nontender with normoactive bowel sounds. Extremities: Right ankle, the patient has exquisite tenderness to palpation over the distal fibula with noticeable edema and ecchymosis. Range of motion is very limited. Very light passive plantar and dorsiflexion causes severe pain referred to the medial and lateral malleoli. I did not attempt passive internal and external rotation, inversion and eversion. The patient is able to depict light sensation to touch over all the digits and pad of his foot and dorsum of his foot. His calf is soft, supple, nontender to palpation. His peripheral pulses are easily palpable. His capillary refill is less than 2 seconds. He is neurovascularly intact. Neurological: Cranial nerves II through XII are intact. No motor or sensory deficits. Psychological/General: The patient is alert and oriented x3 with proper grooming and hygiene. Principal Diagnosis Right ankle maissonneuve & posterior malleolar fractures with syndesmosis disruption Discharge Exam Right lower leg: Splint in place, clean, dry and intact. Toes mobile with tingly sensation with light touch. Cap refill < 2 seconds. Easily able to perform SLRT with knee ROM from 0-120. Quad strength 4/5. NV intact. Discharge Data Allergies Allergy/AdvReac Type Severity Reaction Status Date / Time grass pollen Allergy Unknown Unknown Verified 10/13/19 14:44 house dust mite Allergy Unknown Unknown Verified 10/13/19 14:44 ragweed pollen Allergy Unknown Unknown Verified 10/13/19 14:44 shellfish derived Allergy Unknown ANAPHYLAXIS Verified 10/13/19 14:44 tree and shrub pollen Allergy Unknown Unknown Verified 10/13/19 14:44 weed pollen Allergy Unknown Unknown Verified 10/13/19 14:44 prednisone AdvReac Mild "NAUSEA Verified 10/13/19 14:44 AND VOMITING" morphine AdvReac Unknown "MAKES ME Verified 10/13/19 14:44 STRANGE" Consultations 10/13/19 21:59 Consult Case Management - Discharge Planning Routine Procedures Performed Operation Date: 10/13/19 07:00 Actual Procedures p Right Ankle Open Reduction Internal Fixation Maisonneuve Fracture, Posterior Malleolar Fracture, Syndesmosis Stabilization(Right) - David Damico MD Ordered Studies 10/13/19 07:00 FL ankle RT min 3V RTN Routine FL fluoroscopy <1hr Routine 10/13/19 19:27 US - OR guided needle placemen Routine Hospital Course (1) Closed right ankle fracture: Patient did very well overnight. His block was still in effect the morning of post op day 1. Patient states that he is ready to be discharged home with home health services and will be non weight bearing on the right lower extremity with crutch ambulatory aides. He will follow up in our clinic in 2 weeks. PT/OT Eval Non weight bearing on Right LE with crutch aide DVT prophy with Xarelto and TEDs Pain control with PO meds Ice with EZ wrap Elevated Plan on discharge home today with home health services Follow up at [facility] [address] as scheduled Keep splint in place With questions call Total Time Total Time Spent Total Time Spent (In Minutes): 25 Total Time Includes: Examination of the Patient, Discharge Planning and Medication Reconciliation Discharge Plan Discharge Items Patient Disposition: Home - Self-Care Reason For Visit: Right Ankle Maissonneuve & Posterior Malleolar Fra Discharge Diagnosis: Right ankle maissonneuve & posterior malleolar fractures Activity: As commented below Lifting: None Bathing: Keep incision dry Bathing Comment: May shower tomorrow Sexual Activity: Wait until after follow-up appointment Exercise/Sports: Wait until after follow-up appointment Driving/Machine Use: no driving until cleared by measurement specialist Weightbearing: Right non-weightbearing Weightbearing Comment: with aid of crutches Non-emergency contact: Primary Care Provider Call non-emergency contact if: you have any medication questions, your pain is not controlled, your temperature is above 101.5, your wound has increased drainage and your wound pain has increased Follow-up/Referrals: Christine Lane DO [Primary Care Provider] - 10/19/19 9:20 am Diet: Regular Addtl Attending Provider Instructions: Post-operative Instructions Dear Patient and Family/Friends, Before you are discharged from the hospital, it is important to know what to expect when you get home after surgery. To that end, we have created this sheet of discharge instructions which covers many commonly asked questions. Make sure you go through this sheet in its entirety with your nurse before you are discharged. Please note that we will go over the specifics of your surgery and recovery when you return for your first post-operative visit. Sincerely, Dr. Damico Medication 1. Xarelto 10 mg: take one tablet daily for 21 days. You had a prescription for this medication sent to your pharmacy. 2. Oxycodone 5 mg: take 1-2 tablets every 4-6 hours as needed for pain. A prescription for 30 tablets will be sent to your pharmacy. 3. Extra Strength Tylenol 500 mg: take 2 tablets every 6-8 hours for pain relief of 30 days post operatively. Pain Expect to be in a fair amount of pain after surgery. Remember, our goal is not to eliminate your pain, but to make it tolerable. It is a good idea to stay ahead of your pain by taking the medications you were prescribed once you get home. Typically, the pain starts improving 3-7 days after surgery. You should start weaning off the narcotic pain medication (oxycodone, hydrocodone, hydromorphone, morphine) as soon as your pain improves. Please call our office if your pain is not adequately controlled. Ice Ice your operative site at least 5 times a day for 15-30 minutes at a time. Make sure you have a thin cloth between the ice or cooling unit and your skin to prevent ramirez bite. This is especially important if you received a nerve block. Continue icing your operative site for the first 5-7 days after surgery, then as needed. Diet/Nausea/Vomiting Start by drinking clear liquids and eating crackers. If you can tolerate this, then you may resume your normal diet. If you feel nauseated or vomit, take Zofran/ondansetron (if prescribed). Please call our office if you have intra ctable nausea or vomiting, or, if after hours, you may go to the Emergency Room for help. Constipation Constipation is a common side effect of narcotic pain medication. If you have not had a bowel movement within 2 days after surgery, we recommend purchasing an over the counter laxative such as Milk of Magnesia, Dulcolax, or Miralax from a local pharmacy, and taking it as instructed. Call our clinic if any questions. Slings and Braces If you were placed in a sling or brace, it must be worn at all times, including sleep. You may remove your sling or brace for physical therapy, home exercises, and showering. The length of time you will be in your brace and range of motion restrictions depends on what surgery you had; these details will be reviewed at your first post-operative appointment. Nerve block The anesthesia team sometimes places a nerve block to help with post-operative pain control. This results in significant numbness and inability to move the extremity. The nerve block usually wears off in 8-12 hours, but sometimes can last up to 24 hours. Please call our office if you are still unable to move your extremity after 24 hours, unless you received a pain pump to take home. Nerve blocks typically wear off quickly, so start taking pain medication as soon as you start feeling soreness near your surgical site. Weight bearing and Range of Motion. Do not bear any weight through your operative extremity immediately after surgery. If you had upper extremity surgery, do not lift anything with that arm. If you are in a knee brace, keep it locked in place until your follow-up. We will discuss your weight bearing, range of motion, and lifting restrictions in detail at your first post-operative appointment. Continuous Passive Motion (CPM) Machine If you were prescribed a CPM machine, it will start after your first post- operative appointment, at which time we will give you instructions on the range of motion settings and duration of treatment Physical therapy You will be given a prescription for physical therapy or occupational therapy at your first post-operative appointment. Typically, patients start therapy within 1 week of surgery Wound care and showering We will inspect your wound at your first post-operative visit, and may do a dressing change at that time. Most patients will be in a water-proof dressing that is removed 14 days after surgery. It is normal to see some dried blood on the dressing. Do not remove your dressing, paper strips or sutures yourself unless you are given permission. Showering is allowed the day after surgery. Do not scrub or remove any dressings. The wound should not be submerged underwater (i.e. in a bathtub or pool) until 4 weeks after surgery BRIT stockings If you were given white stockings, these are to be worn at all times except to shower (on both legs) for the first 2 weeks after surgery. Driving You may not drive while taking narcotic pain medication or while in a cast, splint, sling or brace. You, the patient, need to make the final determination about when you are safe to drive, however, the earliest you may consider driving after surgery is below: Hand/Wrist/Elbow Surgery: 3 days Shoulder Surgery: 2 weeks Hip,/Knee/Ankle Surgery: 4 weeks Fracture repair: 6 weeks Return to Work Your return to work depends on what surgery was done and what type of work you do. Please bring any paperwork your employer needs completed to your first post-operative visit. Also, bring a description of your job duties, as this helps us to understand what risks you may face at work. Travel Avoid long distance travel (greater than 1 hour) in airplanes and cars for the first 6 weeks after surgery. If you must travel, you need to have a Doppler ultrasound done before you travel to rule out a blood clot in your legs. Follow-up You should have a follow-up appointment already scheduled 1-2 days after surgery. If not, please contact our office to make this appointment before you leave the hospital. When to call the office It is normal to have swelling and bruising in the limb that was operated on. This will improve with time. It is also normal to have fevers for the first 2 days after surgery. Reasons you should call your doctor include: Uncontrolled pain; Nausea, vomiting, or constipation that does not improve with medication; Fevers over 101.5, chills, sweats; Drainage or bleeding from the wound; Foul odor; Spreading areas of redness; Any other concerns Pending Studies at Discharge: No Stand-Alone Forms: [facility], Smoking Cessation Medications and DC Order Prescriptions: New oxycodone 5 mg tablet 5 mg PO Q6H Qty: 30 RF: 0 Continued pantoprazole 40 mg tablet,delayed release (DR/EC) 40 mg PO DAILY Qty: 90 RF: 1 valsartan 40 mg tablet 40 mg PO DAILY Qty: 90 RF: 1 epinephrine 0.3 mg/0.3 mL auto-injector 0.3 mg IM ONCE PRN (Reason: Allergy Symptoms) Qty: 1 RF: 0 multivitamin tablet 1 tab PO DAILY RF: 0 Discontinued meloxicam [Mobic] 7.5 mg Tablet 7.5 mg PO BID RF: 0 Discharge Orders: Discharge Order (Routine); Ordered 10/14/19 Ordered By: Obey Parekh Admission Data Admit Date/Time: 10/13/19 22:05 Attending Provider: David Damico Admit Provider: David Damico Primary Care Provider: Christine Lane Other Interventions: Discharge Summary Assessment (RN) Last Done: 10/14/19 12:39 DC Date/Time DO NOT enter until pt leaves facility: 10/14/19 14:47
== END 2019-10-14 14:47 | disposition home or self-care (01) ==
LOC: ASU 14:19 → 3N 14:19